=== PATIENT | male | born 1935 | race African-American/Black ===

== ENCOUNTER 2021-04-07 00:06 | Emergency (ER) | payer OTHER, MEDICAID ==
[~2021-04-07] VITALS: Ht 188 cm; Wt 82.0 kg
[2021-04-07 00:14] VITALS: BP 152/77
[2021-04-07] MEDS ORDERED: BACITRACIN ZINC OINT UDPKT TOP ONE (05:15)
== END 2021-04-07 05:28 | disposition home or self-care (01) ==
LOC: ER 00:06
DX: S00.03XA Contusion of scalp, initial encounter (principal); W01.0XXA Fall on same level from slipping, tripping and stumbling without subsequent striking against object, initial encounter; Y93.89 Activity, other specified; Y92.018 Other place in single-family (private) house as the place of occurrence of the external cause
CPT/HCPCS: 99284